=== PATIENT | male | born 1975 | race Caucasian/White ===

== ENCOUNTER 2023-03-23 02:56 | Emergency (ER) | payer OTHER, SELFPAY ==
[2023-03-23] VITALS (7 sets, daily range): BP systolic 111–136; BP diastolic 67–80; BMI 26.6
[2023-03-23 04:02] LABS: % Basophils 0.4 % (0-2); % Immature Granulocytes 0.3 % (0-0.5); % Lymphocytes 21.4 % (20.5-51.1); % Monocytes 8.5 % (1.7-9.3); % Neutrophils 65.4 % (42.2-75.2); Absolute Eosinophils 0.4 10^3/uL (0-0.7); Absolute Lymphocytes 2.3 10^3/uL (1.2-3.4); Absolute Monocytes 0.9 10^3/uL (0.1-0.6); Absolute Neutrophils 7.1 10^3/uL (1.4-6.5); Hematocrit 40.6 % (39.0-52.0); Hemoglobin 14.4 g/dL (13.0-18.0); Mean Corp Hgb Conc. 35.5 g/dL (33.0-37.0); Mean Corpuscular Volume 92.9 fL (80.0-94.0); Mean Platelet Volume 9.4 fL (7.4-10.4); Nucleated Red Blood Cells % 0 % (-); Platelet Count 275 10^3/uL (130-400); Red Blood Cell Count 4.37 10^6/uL (4.70-6.10); Red Cell Dist. Width 11.9 % (11.5-14.5); White Blood Cell Count 10.9 10^3/uL (4.8-10.8)
[2023-03-23 04:28] LABS: ALT (SGPT) 26 U/L (0-50); AST (SGOT) 22 U/L (17-59); Alkaline Phosphatase 56 U/L (38-126); Blood Urea Nitrogen 27 mg/dl (9-20); Calcium 9.3 mg/dl (8.4-10.2); Carbon Dioxide 26 mmol/L (22-30); Chloride 102 mmol/L (98-107); Estimated Creatinine Clearance 89 ml/min; Glucose 94 mg/dl (70-99); Sodium 140 mmol/L (135-145); Total Bilirubin 0.7 mg/dl (0.2-1.3); Total Protein 6.4 g/dl (6.3-8.2); eGFR > 60.00
[2023-03-23 04:34] LABS: Troponin I < 0.012 ng/ml
--- NOTE | 2023-03-23 04:48 | EDRN ---
Updated patient and on results, call stevenson in reach aware we are just waiting on the provider, understanding and no complaints
[2023-03-23] MEDS: DECADRON 10 MG IV (05:37)
[2023-03-23] MEDS: DUONEB 3 ML INH (05:37)
--- NOTE | 2023-03-23 07:16 | ED.GENMED ---
History of Present Illness
General
Chief Complaint: Breathing Problem
Time Seen by Provider: 03/23/23 04:09
Travel History
Have you had any contact with someone who has COVID-19?: No
Do you have any symptoms of coronavirus? Fever > 100 degrees, chills, cough, shortness of breath, sore throat, loss of taste or smell, muscle aches, or headache?: Yes
Symptoms:: SOB
History of Present Illness
History of Present Illness:
47-year-old male presents emergency department due to chest tightness, wheezing and cough. He has a history of allergies and this does feel similar.
Past History
Past History
ED Past Medical History: HTN and Hypercholesterolemia
ED Past Surgical History: None
Social History
Tobacco: Former smoker
Alcohol: Occasional
Personal:
Living: with family
Employment: Employed
Family History
Family History: Hypertension and CAD
Phy Exam
Physical Exam
Physical Exam:
Physical Exam
General: no apparent distress, not acutely ill
Neck: supple. no meningeal signs. normal posterior pharynx
Heart: s1/s2 regular rate and rhythm, no murmur. equal radial
pulses.
HEENT: Pupils equal round reactive to light, EOMI
Lungs: no acute respiratory distress. Decreased breath sounds and wheezing bilaterally
Abdomen: normal bowel sounds. not tender. no CVAT
Neuro: alert and oriented. no focal neurological deficits cranial nerves II through XII intact
Skin: no rash
Psychiatric: well kept. interactive and cooperative
Extremities: no edema. no calf tenderness. negative homans. good distal pulses
Scores
Heart Failure Risk
Heart Failure Risk Score: Not Applicable
Course
Orders/Labs/Results
Orders:
Orders
03/23/23 03:34
Electrocardiogram (*1) Urgent
Reason for Study: Chest Pain
03/23/23 03:35
Cardiac Monitoring- Treatment ONCE
EKG- Treatment ONCE
03/23/23 03:50
CMP [Comprehensive Metabolic Panel] Urgent
Complete Blood Count/With Diff Urgent
Troponin I Urgent
03/23/23 03:51
Chest [CR Chest - 2 Views ] Urgent
Comment:
Reason For Exam: sob
03/23/23 05:33
Dexamethasone Sod Phosphate [Decadron] 10 mg IV NOW STA
03/23/23 05:34
Ipratropium/Albuterol Sulfate [Duoneb] 3 ml INH R NOW ONE
Abnormal Lab Results
03/23/23
03:50
WBC 10.9 H 10^3/uL
(4.8-10.8)
RBC 4.37 L 10^6/uL
(4.70-6.10)
MCH 33.0 H pg
(27.0-31.0)
Absolute Neuts (auto) 7.1 H 10^3/uL
(1.4-6.5)
Absolute Monos (auto) 0.9 H 10^3/uL
(0.1-0.6)
BUN 27 H mg/dl
(9-20)
03/23/23 03:50
03/23/23 03:50
Vital Signs
Initial and Last Documented VS:
Initial Vital Signs
Temp Pulse Resp BP Pulse Ox
98.0 F 83 20 136/80 93
03/23/23 03:15 03/23/23 03:15 03/23/23 03:15 03/23/23 03:15 03/23/23 03:15
Last Documented Vital Signs
Temp Pulse Resp BP Pulse Ox
98.0 F 70 13 120/67 94
03/23/23 03:15 03/23/23 07:30 03/23/23 07:30 03/23/23 07:27 03/23/23 07:30
MDM/Problems Addressed
Differential Diagnosis Includes:
Pneumonia, ACS, PE
MDM/Problems Addressed:
47-year-old male with bronchospastic bronchitis. Do not suspect ACS or PE. Improved after DuoNeb and prednisone. Stable for discharge.
*Radiology
Radiology exam reviewed: preliminary read by ED provider (Chest x-ray no acute findings)
*Pulse Oximetry
Patient hypoxic: no
*EKG
Interpreted by ED Provider?: Yes
EKG Intrepretation Date: 03/23/23
EKG Intrepretation Time: 03:33
Interpretation: normal
Comparison EKG: no changes
Heart Rate: 65
Rate: normal
Rhythm: sinus
[place]: normal axis
Interval: normal interval
QRS Pattern: normal QRS
Ischemia: no ischemia
*[employer]ice Interpretation
Rate: normal
Interpretation: normal
Heart Rate: 66
Rhythm: sinus
*Critical Care Note
Total Time (30-74mins, 75-104mins- exclusive of procedures): Not Applicable
Data Reviewed
Further Testing Considered But Not Given:
ct chest not indicated
Patient Management
Social determinants of health affecting care: Living situation and Strong social support
Escalation/DeEscalation of care consider admission/obs:
admit not indicated
ED Attending Note
-
Portions of this chart may have been created with voice recognition software.� Occasional wrong word or��sound alike� substitutions may have occurred due to the inherent limitations of voice recognition software.
Discharge Plan
Departure
Patient Disposition: Home (Routine Discharge)
Date of Disposition: 03/23/23
Time of Disposition: 07:16
Patient with high blood pressure during this ER visit?: Yes
Condition: Good
Discharge Problem:
Acute bronchitis with bronchospasm
Instructions: Acute Bronchitis, Adult (DC)
Prescriptions:
New
albuterol sulfate 90 mcg/actuation HFA aerosol inhaler
2 puff inhalation Q6H PRN (Reason: shortness of breath or wheezing) Qty: 8.5 0RF
prednisone 50 mg tablet
50 mg PO DAILY Qty: 5 0RF
No Action
loratadine 10 MG tablet
10 mg PO DAILY
Referrals:
Dario Major CRNP [Family Provider] -
Interventions
Interventions:
*Risk Screen - Suicide Last Done: 03/23/23 03:16
*General Assessment Last Done: 03/23/23 03:16
*Neglect/Abuse Screening Last Done: 03/23/23 03:16
ED- Fall Risk Assessment Last Done: 03/23/23 03:16
*ED COVID-19 Vaccine History Last Done: 03/23/23 03:16
ED- Cardiac Assessment Last Done: 03/23/23 04:03
ED- Pulmonary Assessment Last Done: 03/23/23 04:17
== END 2023-03-23 07:55 | disposition home or self-care (01) ==
LOC: EMR 02:56
PROVIDERS: EMERGENCY PHYSICIAN Emergency Medicine; FAMILY PHYSICIAN Nurse Practitioner Family
DX: J20.9 Acute bronchitis, unspecified (principal); I10 Essential (primary) hypertension
CPT/HCPCS: 99285; 96374; 94640; 71046; 80053; 84484; 85025; 93005

== ENCOUNTER → 2024-02-27 15:14 | Outpatient (REF) | payer BC, SELFPAY | LOC: HWRAD 15:14 | PROVIDERS: ATTENDING PHYSICIAN Nurse Practitioner Family | DX: R20.2 Paresthesia of skin (principal); M25.512 Pain in left shoulder | CPT/HCPCS: 72050; 73030; 73140 ==

== ENCOUNTER → 2024-03-02 12:53 | Outpatient (REF) | payer BC, SELFPAY | LOC: RAD 12:53 | PROVIDERS: ATTENDING PHYSICIAN Nurse Practitioner Family | DX: N50.89 Other specified disorders of the male genital organs (principal) | CPT/HCPCS: 76870; 93976 ==

== ENCOUNTER → 2024-12-01 10:15 | Outpatient (REF) | payer BC, SELFPAY | LOC: HWRAD 10:15 | PROVIDERS: ATTENDING PHYSICIAN Nurse Practitioner Family | DX: M25.562 Pain in left knee (principal) | CPT/HCPCS: 73564 ==

== ENCOUNTER → 2024-12-07 07:00 | Outpatient (REF) | payer BC, SELFPAY | LOC: MRI 3T 07:00 | PROVIDERS: ATTENDING PHYSICIAN Nurse Practitioner Family | DX: M25.511 Pain in right shoulder (principal) | CPT/HCPCS: 73221 ==